=== PATIENT | female | born 1975 | race Caucasian/White ===

== ENCOUNTER 2022-07-02 20:16 | Emergency (ER) | payer SELFPAY ==
[~2022-07-02] VITALS: Ht 160 cm; Wt 70.0 kg
[2022-07-02] MEDS ORDERED: IBUPROFEN 400MG TABLET PO ONE (22:30)
[2022-07-03] MEDS ORDERED: TOPUD MT (00:06)
[2022-07-03] MEDS ORDERED: KETOROLAC 60MG/2ML VIAL IM ONE (00:15)
[2022-07-03] MEDS ORDERED: ACETAMINOPHEN 325MG TABLET PO ONE (00:15)
[2022-07-03 00:35] VITALS: BP 114/65
== END 2022-07-03 00:30 | disposition home or self-care (01) ==
LOC: ER 20:16
DX: M79.671 Pain in right foot (principal)
CPT/HCPCS: 73630; 96372; 99283; J1885